=== PATIENT | female | born 1950 | race American Indian/Alaskan Native ===

== ENCOUNTER 2018-06-19 15:58 | Emergency (ER) | payer MEDICARE, OTHER ==
[2018-06-19] MEDS ORDERED: Aspirin 81 MG Tab.Chew PO ONE (16:40)
--- NOTE | 2018-06-19 18:06 | EDM.PDOC ---
<Emma Johnson - Last Filed: 06/19/18 18:27> ED HPI GENERAL MEDICAL PROBLEM - General Chief Complaint: Cardiovascular Problem Stated Complaint: CHEST PRESSURE/SOB Time Seen by Provider: 06/19/18 16:45 Source of Information: Reports: Patient History Limitations: Reports: No Limitations - History of Present Illness INITIAL COMMENTS - FREE TEXT/NARRATIVE: Chest pain on and off since Monday. Today she has jaw pain today that caused her to come to ED. Onset: Sudden Onset Date: 06/17/18 Onset Time: 15:00 Duration: Day(s):, Getting Worse Location: Reports: Chest Quality: Reports: Pressure Severity: Moderate Improves with: Reports: Rest Context: Reports: Activity Associated Symptoms: Reports: Chest Pain, Cough, Shortness of Breath Headache Pain Score (Numeric/FACES): 5 - Related Data Allergies Allergy/AdvReac Type Severity Reaction Status Date / Time acetaminophen [From Vicodin] Allergy Tachycardia Verified 06/19/18 16:10 hydrocodone [From Vicodin] Allergy Tachycardia Verified 06/19/18 16:10 ibuprofen [From Advil] Allergy Nausea Verified 06/19/18 16:10 lisinopril Allergy Cough Verified 06/19/18 16:10 Home Meds: Home Meds Aspirin [Halfprin] 81 mg PO DAILY 10/03/16 [History] Calcium Carb & Citrate/Vit D3 [Calcium + D3 ER Tablet] 1 tab PO DAILY 10/03/16 [ History] Cholecalciferol (Vitamin D3) [Vitamin D3] 2,000 unit PO DAILY 10/03/16 [History] Losartan [Cozaar] 25 mg PO DAILY 10/03/16 [History] Multivitamin [Daily Multiple Vitamin] 1 tab PO DAILY 10/03/16 [History] amLODIPine [Norvasc] 10 mg PO DAILY 10/03/16 [History] Citalopram [Citalopram HBr] 20 mg PO DAILY 10/06/16 [History] Past Medical History HEENT History: Reports: Impaired Vision Cardiovascular History: Reports: Afib, Angina, Hypertension, Pacemaker Gastrointestinal History: Reports: None [employer] History: Reports: Fibroids, Musculoskeletal History: Reports: None Neurological History: Reports: Migraines Psychiatric History: Reports: Depression Endocrine/Metabolic History: Reports: Obesity/BMI 30+ Hematologic History: Reports: Blood Transfusion(s) Oncologic (Cancer) History: Reports: Breast Other Oncologic History: pre cancer cells - Infectious Disease History Infectious Disease History: Reports: Chicken Pox, Hepatitis A, Measles, Mumps, Rubella - Past Surgical History Head Surgeries/Procedures: Reports: None HEENT Surgical History: Reports: None Cardiovascular Surgical History: Reports: None GI Surgical History: Reports: Cholecystectomy, Colonoscopy Endocrine Surgical History: Reports: None Neurological Surgical History: Reports: None Musculoskeletal Surgical History: Reports: Other (See Below) Other Musculoskeletal Surgeries/Procedures:: tailbone fx Oncologic Surgical History: Reports: Biopsy of Breast Dermatological Surgical History: Reports: None Social & Family History - Family History Family Medical History: Noncontributory - Tobacco Use Smoking Status *Q: Former Smoker Years of Tobacco use: 11 Used Tobacco, but Quit: Yes Month/Year Tobacco Last Used: 1979 Second Hand Smoke Exposure: No - Caffeine Use Caffeine Use: Reports: Coffee, Soda - Recreational Drug Use Recreational Drug Use: No ED ROS GENERAL - Review of Systems Review Of Systems: See Below Constitutional: Reports: No Symptoms Respiratory: Reports: Shortness of Breath Cardiovascular: Reports: Chest Pain, Dyspnea on Exertion GI/Abdominal: Reports: No Symptoms Musculoskeletal: Reports: Joint Pain, Other (fell on bilateral knees approx 1-2 months ago) Skin: Reports: No Symptoms Neurological: Reports: No Symptoms Psychiatric: Reports: No Symptoms Hematologic/Lymphatic: Reports: No Symptoms ED EXAM, GENERAL - Physical Exam Exam: See Below Free Text/Narrative:: Pt given additional aspirin to total full dose 325 mg on arrival. No chest pain on arrival so nitro not administered. EKG is not remarkable. Labs and Xray ordered Exam Limited By: No Limitations General Appearance: Alert, WD/WN, Mild Distress Neck: Normal Inspection, Supple, Non-Tender. No: Carotid Bruit Respiratory/Chest: No Respiratory Distress, Lungs Clear, Normal Breath Sounds, No Accessory Muscle Use Cardiovascular: Normal Peripheral Pulses, Regular Rate, Rhythm, No Edema, No Gallop, No JVD, No Murmur, No Rub GI/Abdominal: Normal Bowel Sounds, Soft, Non-Tender, No Organomegaly, No Distention, No Abnormal Bruit, No Mass Extremities: Normal Inspection, No Pedal Edema. No: Pedal Edema Neurological: Alert, Oriented, CN II-XII Intact, Normal Cognition Psychiatric: Normal Affect, Normal Mood EKG INTERPRETATION EKG Date: 06/19/18 Time: 16:44 Rhythm: Other (paced) [place]: Normal P-Wave: Present QRS: Normal ST-T: Normal Course - Vital Signs Text/Narrative:: Pt continues with some symptom of pressure with activity. Denies problems or concern at rest. consulted Cardiology in [place] due to continued symptoms without devinitive reason. Pt has a pacemaker followup Monday with cardiology. It is determined not to wait until Monday. Pt to go to [facility] as a direct admit. Pt will travel by private vehicle Lab Values as Follows Hematology WNL D-Dimer 252 Potassium 3.5 Troponin <0.017 Patient instructed to go directly to [facility] for admission Last Recorded V/S: Last Vital Signs Temp 98.6 F 06/19/18 16:14 Pulse 70 06/19/18 16:24 Resp 15 06/19/18 16:24 BP 147/78 H 06/19/18 16:24 Pulse Ox 96 06/19/18 16:24 - Orders/Labs/Meds Orders: Active Orders 24 hr Category Date Time Status EKG Documentation Completion [RC] ASDIRECTED Care 06/19/18 16:41 Active EKG 12 Lead [EK] Stat Ther 06/19/18 16:40 Ordered Labs: Laboratory Tests 06/19/18 06/19/18 06/19/18 Range/Units 17:27 17:27 17:27 WBC 6.5 (4.5-11.0) K/uL RBC 4.53 (3.30-5.50) M/uL Hgb 14.1 (12.0-15.0) g/dL Hct 41.2 (36.0-48.0) % MCV 91 (80-98) fL MCH 31 (27-31) pg MCHC 34 (32-36) % Plt Count 251 (150-400) K/uL D-Dimer, Quantitative 252 (0.0-400.0) ng/mL Sodium 141 (140-148) mmol/L Potassium 3.5 L (3.6-5.2) mmol/L Chloride 103 (100-108) mmol/L Carbon Dioxide 25 (21-32) mmol/L Anion Gap 16.5 H (5.0-14.0) mmol/L BUN 11 (7-18) mg/dL Creatinine 1.0 (0.6-1.0) mg/dL Est Cr Clr Drug Dosing 46.40 mL/min Estimated GFR (MDRD) 56 L (>60) Glucose 122 H (74-106) mg/dL Calcium 8.6 (8.5-10.1) mg/dL Total Bilirubin 0.8 (0.2-1.0) mg/dL AST 42 H (15-37) U/L ALT 65 (12-78) U/L Alkaline Phosphatase 98 (46-116) U/L Troponin I < 0.017 (0.000-0.056) ng/mL Total Protein 6.8 (6.4-8.2) g/dL Albumin 3.9 (3.4-5.0) g/dL Globulin 2.9 (2.3-3.5) g/dL Albumin/Globulin Ratio 1.3 (1.2-2.2) Meds: Medications Discontinued Medications Generic Name Dose Route Start Last Admin Trade Name Freq PRN Reason Stop Dose Admin Aspirin 243 mg 06/19/18 16:40 06/19/18 16:52 Aspirin PO 06/19/18 16:41 243 mg ONETIME ONE Administration - Radiology Interpretation Free Text/Narrative:: Chest Xray without obvious abnormalities - Re-Assessments/Exams Free Text/Narrative Re-Assessment/Exam: 06/19/18 18:17 Still having some chest pain with movement to and from wheel chair during xray testing. Lab values without significance. Departure - Departure Disposition: DC/Tfer to Other 70 Clinical Impression: Angina of effort Instructions: Angina Pectoris Referrals: PCP,None [Primary Care Provider] - Forms: ED Department Discharge Care Plan Goals: Resident/PA IDX Provider #_ * Jeff Glass MD was personally available for consultation in the ED. I have reviewed the chart and agree with the documentation as recorded by Kavya Johnson, including the assessment, treatment plan and disposition. * Jeff Glass MD personally saw and examined the patient. I have reviewed and agree with the Resident's findings. Go directly to [facility] for admission for cardiology evaluation and treatment. <Jeff Meade - Last Filed: 06/20/18 10:44> Course - Re-Assessments/Exams Free Text/Narrative Re-Assessment/Exam: 06/19/18 18:34 After discussion with cardiology and internal medicine/hospitalist service in [place], it was recommended to the patient be transported by ambulance. She was well informed of the risks, but insisted on being transported by private car. She will go directly to the hospital for direct admission. Departure - Departure Time of Disposition: 18:37 Reason for Transfer *Q: Other (Cardiology eval) Condition: Good
--- NOTE | 2018-06-20 08:39 | CR ---
CHEST: 2 view CLINICAL HISTORY:Chest pain COMPARISON:2010 FINDINGS: Heart size and pulmonary vascular normal. Patient has a permanent cardiac pacer. Lung fiel ds are clear. IMPRESSION: Permanent cardiac pacer No acute cardiopulmonary process
== END 2018-06-19 18:37 | disposition other institution (70) ==
LOC: JP.ED 15:58
DX: I20.9 Angina pectoris, unspecified (principal); I10 Essential (primary) hypertension; I48.91 Unspecified atrial fibrillation; F32.9 Major depressive disorder, single episode, unspecified; Z79.899 Other long term (current) drug therapy; Z87.891 Personal history of nicotine dependence; Z79.82 Long term (current) use of aspirin; Z88.6 Allergy status to analgesic agent; Z88.5 Allergy status to narcotic agent
CPT/HCPCS: 36415; 71046; 80053; 84484; 85027; 85379; 93005; 99285; A9270

== ENCOUNTER 2024-03-12 07:52 | Day surgery (SDC) | payer MEDICARE, OTHER ==
[2024-03-12] MEDS: Lactated Ringers 1,000 ML IV SCH (08:24)
[2024-03-12] MEDS ORDERED: fentaNYL 50 MCG/ML SDV ONE (08:39)
[2024-03-12] MEDS ORDERED: Midazolam 1 MG/ML 2 ML SDV ONE (08:39)
[2024-03-12] MEDS ORDERED: Propofol 200 MG/20 ML SDV ONE (08:39)
== END 2024-03-12 11:39 | disposition home or self-care (01) ==
LOC: JP.SDS 07:52
PROVIDERS: ATTEND Family Medicine
DX: Z12.11 Encounter for screening for malignant neoplasm of colon (principal); I10 Essential (primary) hypertension; E78.5 Hyperlipidemia, unspecified; Z79.84 Long term (current) use of oral hypoglycemic drugs; Z87.891 Personal history of nicotine dependence; Z79.899 Other long term (current) drug therapy; Z98.890 Other specified postprocedural states; Z88.5 Allergy status to narcotic agent; Z88.6 Allergy status to analgesic agent
CPT/HCPCS: G0121; J2250; J2704; J3010; J7120

== ENCOUNTER 2025-09-23 20:40 | Emergency (ER) | payer MEDICARE, OTHER ==
[2025-09-23 21:22] LABS: BASOPHILS ABSOLUTE AUTO 0.02 K/uL (0.00-0.10); BASOPHILS PERCENT AUTO 0.3 % (0.1-1.3); EOSINOPHILS ABSOLUTE AUTO 0.46 K/uL (0.00-0.40); EOSINOPHILS PERCENT AUTO 6.4 % (0.0-5.4); IMMATURE GRAN ABSOLUTE AUTO 0.02 K/uL (0.00-0.23); IMMATURE GRAN PERCENT AUTO 0.3 % (0.0-0.7); LYMPHOCYTES ABSOLUTE AUTO 2.02 K/uL (0.8-3.3); LYMPHOCYTES PERCENT AUTO 28.1 % (11.4-47.7); MONOCYTES ABSOLUTE AUTO 0.62 K/uL (0.20-0.90); MONOCYTES PERCENT AUTO 8.6 % (3.3-12.6); NEUTROPHILS ABSOLUTE AUTO 4.04 K/uL (1.0-7.6); NEUTROPHILS PERCENT AUTO 56.3 % (40.0-78.1); PLATELET COUNT,PLT 277 K/uL (130-375); RED BLOOD CELL COUNT 4.32 M/uL (3.77-5.24); WHITE BLOOD CELL COUNT,WBC 7.2 K/uL (3.2-11.0)
[2025-09-23 21:35] LABS: BLOOD UREA NITROGEN,BUN 15.0 mg/dL (7-18); CARBON DIOXIDE,CO2 29.0 mmol/L (21-32); CHLORIDE,CL 102.0 mmol/L (100-108); CREATININE 0.8 mg/dL (0.6-1.0); EST CRCL DRUG DOSING (CG) 51.81 mL/min; ESTIMATED GFR 78.0 mL/min (>60); GLUCOSE RANDOM 104.0 mg/dL (74-106); POTASSIUM,K 3.5 mmol/L (3.6-5.2); SODIUM,NA 138.0 mmol/L (140-148)
== END 2025-09-23 22:52 | disposition home or self-care (01) ==
LOC: JP.ED 20:40
DX: J06.9 Acute upper respiratory infection, unspecified (principal); I10 Essential (primary) hypertension; I48.91 Unspecified atrial fibrillation; E66.9 Obesity, unspecified; Z95.0 Presence of cardiac pacemaker; Z79.899 Other long term (current) drug therapy; Z88.8 Allergy status to other drugs, medicaments and biological substances; Z88.5 Allergy status to narcotic agent; Z90.49 Acquired absence of other specified parts of digestive tract; Z68.31 Body mass index [BMI] 31.0-31.9, adult
CPT/HCPCS: 36415; 71046; 71046-26; 80048; 85025; 99284